=== PATIENT | female | born 1960 | race Caucasian/White ===

== ENCOUNTER 2018-10-30 09:59 | Emergency (ER) | payer BC ==
--- NOTE | 2018-10-30 10:59 | UC ---
Throat Pain/Nasal Ry HPI - HPI Summary HPI Summary: 58-year-old female who has had an inflamed area of skin underneath her tongue. She states a few weeks ago she had a cystlike area removed from under her tongue by Dr. Fotser. That had been sent for biopsy and was negative. She states she's had a dry throat and dry mouth over the past couple of days but noticed that the skin area around the salivary glands was inflamed and swollen yesterday and she felt like her tongue was swollen however she states it's much better today. She denies any difficulty breathing and no known exposure to - History of Current Complaint Chief Complaint: UCRespiratory Stated Complaint: ST Time Seen by Provider: 10/30/18 10:59 Hx Obtained From: Patient ?: No Onset/Duration: Gradual Onset Severity: Mild Cough: None Associated Signs & Symptoms: Positive: Other - Patient states she's had a very dry throat over the past couple of days. - Allergies/Home Medications Allergies/Adverse Reactions: Allergies Allergy/AdvReac Type Severity Reaction Status Date / Time clarithromycin [From Biaxin] Allergy Swelling Verified 10/30/18 11:02 Of Face,Lips,& Throat Home Medications: Home Medications Ibuprofen 400 mg PO 10/30/18 [History] diphenhydrAMINE HCl [Benadryl Allergy 25 MG CAP] 25 mg PO 10/30/18 [History] PMH/Surg Hx/FS Hx/Imm Hx Previously Healthy: Yes - Surgical History Surgical History: None - Family History Known Family History: Positive: Non-Contributory Review of Systems All Other Systems Reviewed And Are Negative: Yes Skin: Positive: Other - Very small inflamed area around the lower salivary glands over the past couple days but states it's much better today. ENT: Positive: Other - Patient states her tongue feels swollen but she took Benadryl yesterday and felt much better however she denied any difficulty breathing. Today she says the tongue swelling has decreased significantly Is Patient Immunocompromised?: No Physical Exam Triage Information Reviewed: Yes Appearance: Well-Appearing, No Pain Distress, Well-Nourished Vital Signs Reviewed: Yes ENT: Positive: Pharynx normal, TMs normal, Uvula midline, Other - Patient's tongue appears normal, around the salivary gland it's minimally erythematous but not swollen. Negative: Trismus, Muffled voice Neck exam: Normal Neck: Positive: Supple, Nontender, No Lymphadenopathy Respiratory: Positive: Lungs clear, Normal breath sounds, No respiratory distress, No accessory muscle use Cardiovascular: Positive: RRR, No Murmur, Pulses Normal, Brisk Capillary Refill Musculoskeletal Exam: Normal Neurological Exam: Normal Psychological Exam: Normal Skin Exam: Normal Throat Pain/Nasal Course/Dx - Course Course Of Treatment: Patient has been comfortable here and in no distress. She is feeling better today than she had been earlier in the week. I believe her symptoms are that of a viral illness however I did advise her she could swish with warm salt water and follow up with Dr. Foster if she has any worsening symptoms. If she feels like her throat is closing or her tongue is becoming more swollen she needs to call 911 and go to the ER. - Differential Dx/Diagnosis Provider Diagnosis: Pharyngitis Discharge - Sign-Out/Discharge Documenting (check all that apply): Patient Departure All imaging exams completed and their final reports reviewed: No Studies - Discharge Plan Condition: Fair Disposition: HOME Referrals: Marie Anders MD [Primary Care Provider] - Additional Instructions: Warm saltwater swishes 4-6 times a day, take Toya daily, stop your Flonase, follow-up with Dr. Foster on Friday if no improvement, if you have any worsening symptoms or feeling like your tongue is swelling or your throat is closing call 911 - Billing Disposition and Condition Condition: FAIR Disposition: Home
[2018-10-30 11:02] VITALS: BP 145/78
== END 2018-10-30 11:24 | disposition home or self-care (01) ==
LOC: UCCORT 09:59
DX: J02.9 Acute pharyngitis, unspecified (principal); Z88.8 Allergy status to other drugs, medicaments and biological substances
CPT/HCPCS: 99211; G0463